=== PATIENT | male | born 1970 | race Caucasian/White ===

== ENCOUNTER 2022-10-17 14:16 | Emergency (ER) | payer OTHER ==
[2022-10-17 14:26] VITALS: TEMP 98.2
[2022-10-17] MEDS ORDERED: FLUTICASONE 50MCG/SPRAY NASAL 16GM EA NOSTRIL STA (14:35)
[2022-10-17] MEDS ORDERED: ALBUTEROL NEBULIZED 2.5 MG/3 ML INHALATION STA (14:35)
[2022-10-17] MEDS ORDERED: SODIUM CHLORIDE 0.9% 1,000 ML IV STA (14:36)
--- NOTE | 2022-10-17 15:02 | ED ---
General Adult HPI - General Chief complaint: Shortness of Breath Stated complaint: KEVEN, cough Time Seen by Provider: 10/17/22 14:29 Source: patient Mode of arrival: wheelchair - History of Present Illness Initial comments: Patient is a 51-year-old male who presents to the emergency department with a chief complaint of cough and shortness of breath. Patient feels that he has pne umonia again. He reports productive cough for the past 2 days with nasal congestion. He denies fever, chills, chest pain. No abdominal pain, nausea, vomiting. He denies history of cardiac disease. Denies leg pain and swelling. Patient currently residing at [place] - Related Data Previous Rx's Medication Instructions Recorded Albuterol Inhaler [Ventolin Hfa 2 puff INHALATION TID #8 gm 10/17/22 Inhaler] Allergies Allergy/AdvReac Type Severity Reaction Status Date / Time No Known Allergies Allergy Verified 10/17/22 14:26 Review of Systems ROS Statement: Those systems with pertinent positive or pertinent negative responses have been documented in the HPI. ROS Other: All systems not noted in ROS Statement are negative. Past Medical History Past Medical History: No Reported History History of Any Multi-Drug Resistant Organisms: None Reported Past Surgical History: No Surgical Hx Reported, Orthopedic Surgery Past Psychological History: Depression Smoking Status: Current every day smoker General Exam General appearance: alert, in no apparent distress Head exam: Present: atraumatic, normocephalic, normal inspection Eye exam: Present: normal appearance, PERRL, EOMI. Absent: scleral icterus, conjunctival injection, periorbital swelling ENT exam: Present: normal oropharynx Respiratory exam: Present: normal lung sounds bilaterally, wheezes (mild upper airway). Absent: respiratory distress, rales, rhonchi, stridor, chest wall tenderness, accessory muscle use, decreased breath sounds, prolonged expiratory Cardiovascular Exam: Present: regular rate, normal rhythm, normal heart sounds. Absent: systolic murmur, diastolic murmur, rubs, gallop, clicks GI/Abdominal exam: Present: soft, normal bowel sounds. Absent: distended, tenderness, guarding, rebound, rigid Neurological exam: Present: alert, oriented X3, CN II-XII intact Psychiatric exam: Present: normal affect, normal mood Skin exam: Present: warm, dry, intact, normal color. Absent: rash Course Vital Signs 10/17/22 10/17/22 10/17/22 14:23 14:48 14:58 Temperature 98.2 F Pulse Rate 95 100 Respiratory 18 22 Rate Blood Pressure 89/57 O2 Sat by Pulse 97 Oximetry 10/17/22 10/17/22 15:05 15:56 Temperature Pulse Rate 100 96 Respiratory 18 Rate Blood Pressure 117/71 O2 Sat by Pulse 98 Oximetry Medical Decision Making - Medical Decision Making EKG taken at 15:05, interpreted by me Sinus rhythm with occasional ectopic premature complexes,no ST or T-wave abnormality Ventricular rate 78, TX interval 156, QRS duration 79, QTC 260 Was pt. sent in by a medical professional or institution (, PA, ARTIFICIAL BREEDING TECHNICIAN, urgent care, hospital, or residential...) When possible be specific @ -No Did you speak to anyone other than the patient for history (EMS, parent, family, police, friend...)? What history was obtained from this source @ -No Did you review nursing and triage notes (agree or disagree)? Why? @ -I reviewed and agree with nursing and triage notes Were old charts reviewed (outside hosp., previous admission, EMS record, old EKG, old radiological studies, urgent care reports/EKG's, residential records)? Report findings @ -No old charts were reviewed Differential Diagnosis (chest pain, altered mental status, abdominal pain women, abdominal pain men, vaginal bleeding, weakness, fever, dyspnea, syncope, headache, dizziness, GI bleed, back pain, seizure, CVA, palpatations, mental health)? @ -Differential Dyspnea: Coronary syndrome, arrhythmia, tamponade, asthma, COPD, pulmonary embolism, pneumonia, pneumothorax, pulmonary effusion, anaphylaxis, diabetic ketoacidosis, flailed chest, pulmonary contusion, diaphragmatic rupture, anemia, neuromuscular, this is not meant to be an all-inclusive list. EKG interpreted by me (3pts min.). @ -As above X-rays interpreted by me (1pt min.). @ -Yes, chest x-ray negative for pneumonia and other acute process CT interpreted by me (1pt min.). @ -None done U/S interpreted by me (1pt. min.). @ -None done What testing was considered but not performed or refused? (CT, X-rays, U/S, labs)? Why? @ -None What meds were considered but not given or refused? Why? @ -None Did you discuss the management of the patient with other professionals (professionals i.e. , PA, ARTIFICIAL BREEDING TECHNICIAN, lab, RT, psych nurse, social work supervisor, siding applicator, teacher, chief security and safety officer, case technician)? Give summary @ -No Was smoking cessation discussed for >3mins.? @ -No Was critical care preformed (if so, how long)? @ -No Were there social determinants of health that impacted care today? How? (Homelessness, low income, unemployed, alcoholism, drug addiction, transportation, low edu. Level, literacy, decrease access to med. care, prison, r ehab)? @ -No Was there de-escalation of care discussed even if they declined (Discuss DNR or withdrawal of care, Hospice)? DNR status @ -No What co-morbidities impacted this encounter? (DM, HTN, Smoking, COPD, CAD, Cancer, CVA, ARF, Chemo, Hep., AIDS, mental health diagnosis, sleep apnea, morbid obesity)? @ -None Was patient admitted / discharged? Hospital course, mention meds given and route, prescriptions, significant lab abnormalities, going to OR and other pertinent info. @ -Patient presenting for cough and shortness of breath. Patient well- appearing, nonlabored breathing, no evidence of respiratory distress. Afebrile. There is mild wheezing upper airways. chest x-ray negative for acute process including pneumonia. COVID-19, RSV, influenza not detected. Labs were obtained patient does have elevated blood sugar at 249. Patient states he is a diabetic who does not take medications he is apathetic about his blood sugar results and does not check his blood sugar home. Patient given nebulized breathing treatment with improvement of lung sounds. Vitals remained stable throughout visit patient is stable medical condition for discharge. He is discharged with paper prescription for albuterol inhaler. Undiagnosed new problem with uncertain prognosis? @ -No Drug Therapy requiring intensive monitoring for toxicity (Heparin, Nitro, Insulin, Cardizem)? @ -No Were any procedures done? @ -No Diagnosis/symptom? @ -Acute bronchitis, hyperglycemia Acute, or Chronic, or Acute on Chronic? @ -acute Uncomplicated (without systemic symptoms) or Complicated (systemic symptoms)? @ -uncomplicated Side effects of treatment? @ -No Exacerbation, Progression, or Severe Exacerbation? @ -No Poses a threat to life or bodily function? How? (Chest pain, [place], [place], pneumonia, PE, COPD, DKA, ARF, appy, cholecystitis, CVA, Diverticulitis, Homicidal, Suicidal, threat to staff... and all critical care pts) @ -No Dr. Astorga is my attending - Lab Data Result diagrams: 10/17/22 14:47 10/17/22 14:47 Lab Results 10/17/22 10/17/22 10/17/22 Range/Units 14:47 14:47 14:47 WBC 9.0 (3.8-10.6) k/uL RBC 4.82 (4.30-5.90) m/uL Hgb 14.5 (13.0-17.5) gm/dL Hct 43.0 (39.0-53.0) % MCV 89.2 (80.0-100.0) fL MCH 30.1 (25.0-35.0) pg MCHC 33.8 (31.0-37.0) g/dL RDW 12.9 (11.5-15.5) % Plt Count 157 (150-450) k/uL MPV 8.7 Neutrophils % 75 % Lymphocytes % 11 % Monocytes % 9 % Eosinophils % 1 % Basophils % 1 % Neutrophils # 6.7 (1.3-7.7) k/uL Lymphocytes # 1.0 (1.0-4.8) k/uL Monocytes # 0.8 (0-1.0) k/uL Eosinophils # 0.1 (0-0.7) k/uL Basophils # 0.1 (0-0.2) k/uL Sodium 134 L (137-145) mmol/L Potassium 3.9 (3.5-5.1) mmol/L Chloride 99 (98-107) mmol/L Carbon Dioxide 28 (22-30) mmol/L Anion Gap 7 mmol/L BUN 11 (9-20) mg/dL Creatinine 0.62 L (0.66-1.25) mg/dL Est GFR (CKD-EPI)AfAm >90 (>60 ml/min/1.73 sqM) Est GFR (CKD-EPI)NonAf >90 (>60 ml/min/1.73 sqM) Glucose 249 H (74-99) mg/dL POC Glucose (mg/dL) (70-110) mg/dL POC Glu Regional Account Manager ID Calcium 8.6 (8.4-10.2) mg/dL Total Bilirubin 1.1 (0.2-1.3) mg/dL AST 20 (17-59) U/L ALT 25 (4-49) U/L Alkaline Phosphatase 92 (38-126) U/L Total Protein 7.0 (6.3-8.2) g/dL Albumin 3.8 (3.5-5.0) g/dL Influenza Type A (PCR) Not Detected (Not Detectd) Influenza Type B (PCR) Not Detected (Not Detectd) RSV (PCR) Not Detected (Not Detectd) SARS-CoV-2 (PCR) Not Detected (Not Detectd) 10/17/22 Range/Units 15:55 WBC (3.8-10.6) k/uL RBC (4.30-5.90) m/uL Hgb (13.0-17.5) gm/dL Hct (39.0-53.0) % MCV (80.0-100.0) fL MCH (25.0-35.0) pg MCHC (31.0-37.0) g/dL RDW (11.5-15.5) % Plt Count (150-450) k/uL MPV Neutrophils % % Lymphocytes % % Monocytes % % Eosinophils % % Basophils % % Neutrophils # (1.3-7.7) k/uL Lymphocytes # (1.0-4.8) k/uL Monocytes # (0-1.0) k/uL Eosinophils # (0-0.7) k/uL Basophils # (0-0.2) k/uL Sodium (137-145) mmol/L Potassium (3.5-5.1) mmol/L Chloride (98-107) mmol/L Carbon Dioxide (22-30) mmol/L Anion Gap mmol/L BUN (9-20) mg/dL Creatinine (0.66-1.25) mg/dL Est GFR (CKD-EPI)AfAm (>60 ml/min/1.73 sqM) Est GFR (CKD-EPI)NonAf (>60 ml/min/1.73 sqM) Glucose (74-99) mg/dL POC Glucose (mg/dL) 216 H (70-110) mg/dL POC Glu Regional Account Manager ID Pablo Murray Calcium (8.4-10.2) mg/dL Total Bilirubin (0.2-1.3) mg/dL AST (17-59) U/L ALT (4-49) U/L Alkaline Phosphatase (38-126) U/L Total Protein (6.3-8.2) g/dL Albumin (3.5-5.0) g/dL Influenza Type A (PCR) (Not Detectd) Influenza Type B (PCR) (Not Detectd) RSV (PCR) (Not Detectd) SARS-CoV-2 (PCR) (Not Detectd) Disposition Clinical Impression: Hyperglycemia Disposition: HOME SELF-CARE Condition: Good Instructions (If sedation given, give patient instructions): Acute Bronchitis (ED) Additional Instructions: Take medication as directed. Increase water intake. Follow-up with primary care provider as your blood sugar was very elevated in the emergency department today. Return to emergency department if you experience new, concerning, or worsening symptoms. Prescriptions: Albuterol Inhaler [Ventolin Hfa Inhaler] 2 puff INHALATION TID #8 gm Is patient prescribed a controlled substance at d/c from ED?: No Referrals: None,Stated [Primary Care Provider] - 1-2 days
[2022-10-17 15:04] LABS: Basophils # (A) 0.1 k/uL (0-0.2); Basophils % (A) 1 %; Eosinophils # (A) 0.1 k/uL (0-0.7); Eosinophils % (A) 1 %; HGB 14.5 gm/dL (13.0-17.5); Lymphocytes % (A) 11 %; MCH 30.1 pg (25.0-35.0); MCHC 33.8 g/dL (31.0-37.0); MCV 89.2 fL (80.0-100.0); Mean Platelet Volume 8.7; Monocytes # (A) 0.8 k/uL (0-1.0); Monocytes % (A) 9 %; Neutrophils # (A) 6.7 k/uL (1.3-7.7); Neutrophils % (A) 75 %; Platelet Count 157 k/uL (150-450); RBC 4.82 m/uL (4.30-5.90); RDW 12.9 % (11.5-15.5)
--- NOTE | 2022-10-17 15:05 | XR ---
EXAMINATION TYPE: XR chest 2V DATE OF EXAM: 10/17/2022 COMPARISON: NONE TECHNIQUE: PA and lateral views submitted. HISTORY: Shortness of breath FINDINGS: The lungs are clear and there is no pneumothorax, pleural effusion, or focal pneumonia. Heart size normal and no overt failure. Osseous structures demonstrate postsurgical changes of the spine. Hyperi nflation suggests COPD. Age-indeterminate mild to moderate compression superior endplate deformity no vinay in the lower thoracic spine. IMPRESSION: 1. No acute process.
[2022-10-17 15:16] LABS: ALT 25 U/L (4-49); AST 20 U/L (17-59); African American GFR (CKD) >90 (>60 ml/min/1.73 sqM); Albumin 3.8 g/dL (3.5-5.0); Alkaline Phosphatase 92 U/L (38-126); Anion Gap 7 mmol/L; Blood Urea Nitrogen 11 mg/dL (9-20); Calcium 8.6 mg/dL (8.4-10.2); Carbon Dioxide 28 mmol/L (22-30); Chloride 99 mmol/L (98-107); Glucose 249 mg/dL (74-99); Non-African American GFR(CKD) >90 (>60 ml/min/1.73 sqM); Potassium 3.9 mmol/L (3.5-5.1); Sodium 134 mmol/L (137-145); Total Bilirubin 1.1 mg/dL (0.2-1.3)
[2022-10-17 15:57] VITALS: BP 117/71; PULSE 96; RESP 18
[2022-10-17 15:57] LABS: Glucose,Whole Blood 216 mg/dL (70-110)
== END 2022-10-17 16:18 | disposition home or self-care (01) ==
LOC: EC 14:16
DX: J20.9 Acute bronchitis, unspecified (principal); E11.65 Type 2 diabetes mellitus with hyperglycemia; F17.200 Nicotine dependence, unspecified, uncomplicated; Z20.822 Contact with and (suspected) exposure to COVID-19
CPT/HCPCS: 36415; 71046; 80053; 85025; 87636; 93005; 94640; 96360; 99285